=== PATIENT | female | born 1945 | race Caucasian/White ===

== ENCOUNTER → 2023-05-26 | Outpatient (CLI) | payer MEDICARE, OTHER | LOC: COL.RAD 08:18 | DX: N13.30 Unspecified hydronephrosis (principal) ==

== ENCOUNTER → 2023-05-28 | Outpatient (CLI) | payer MEDICARE, OTHER ==
[2023-05-28 11:03] LABS: CREATININE, serum 0.98 mg/dL (0.57-1.11)
== END ==
LOC: COL.LAB 09:49
PROVIDERS: Urology
DX: N13.30 Unspecified hydronephrosis (principal); Z87.440 Personal history of urinary (tract) infections

== ENCOUNTER → 2023-06-02 | Outpatient (CLI) | payer MEDICARE, OTHER ==
[~2023-06-02] MED LIST: Iohexol 300 - 100 ML VIAL IV ONE; NS 100 ML IV SCH
== END ==
LOC: COL.RAD 13:49
DX: N13.30 Unspecified hydronephrosis (principal); K76.89 Other specified diseases of liver; Z87.440 Personal history of urinary (tract) infections; Z85.3 Personal history of malignant neoplasm of breast
CPT/HCPCS: Q9967